=== PATIENT | female | born 1955 | race Caucasian/White ===

== ENCOUNTER 2017-03-29 05:36 | Outpatient (CLI) | payer BC ==
[~2017-03-29] VITALS: Ht 160 cm; Wt 86.4 kg
[2017-03-29 06:32] LABS: BASOPHILS 0.5 % (0-2); EOSINOPHILS 2.9 % (0-7); HEMATOCRIT 43.3 % (36.0-48.0); IMMATURE GRANULOCYTES 0.5 % (0-5); MCH 26.8 pg (26.0-34.0); MCHC 32.3 g/dL (31.0-37.0); MONOCYTES 9.5 % (2-11); NEUTROPHILS 64.6 % (40-80); PLATELET COUNT 317 10x3/uL (130-400); RBC 5.22 10x6/uL (4.00-5.40); RDW 13.5 % (11.5-14.5); WBC 10.2 10x3/uL (4.8-10.8)
[2017-03-29 07:05] LABS: CALC OSMOLALITY 284 mosm/kg (275-300); CALCIUM 8.7 mg/dL (8.5-10.1); CARBON DIOXIDE 26.9 mmol/L (21.0-32.0); CHLORIDE - SERUM 107 mmol/L (98-107); CREATININE - SERUM 0.8 mg/dL (0.6-1.3); GLUCOSE 129 mg/dL (74-106); POTASSIUM - SERUM 4.1 mmol/L (3.5-5.1); SODIUM 142 mmol/L (136-145); UREA NITROGEN 13 mg/dL (7-18); eGFR NON AFRICAN AMERICAN 77 mL/min (90-120)
[2017-03-29] MEDS ORDERED: ALDACTONE100 MG PO (07:05)
[2017-03-29] MEDS ORDERED: ARMOUR THYROID90 MG PO (07:05)
[2017-03-29] MEDS ORDERED: PROMETRIUM100 MG PO (07:05)
[2017-03-29] MEDS ORDERED: FARXIGA10 MG PO (07:06)
[2017-03-29] MEDS ORDERED: VICTOZA0.6 MG/0.1 SQ (07:06)
[2017-03-29] MEDS ORDERED: METFORMIN HCL500 M1 PO (07:06)
[2017-03-29] MEDS ORDERED: LIPITOR10 MG PO (07:06)
[2017-03-29 07:09] VITALS: BP 120/71; Ht 160 cm; Wt 86.4 kg
[2017-03-29 07:10] LABS: APTT 27.6 SECONDS (22.8-39.4); INR 1.1 (0.85-1.17); PROTIME 13.8 SECONDS (11.6-15.0)
--- NOTE | 2017-03-29 12:30 | NUR ---
0905--ALL VITAL SIGNS CHARTED ON POST PROCEDURE VITAL SIGN SHEET ON CHART. TING GAMBINO 1105--PT IV DC'D, PT UP TO DRESS AT THIS TIME. TING GAMBINO 1125--DISCHARGE INSTRUCTIONS GIVEN, PT VERBALIZES UNDERSTANDING. PT OFF UNIT VIA WC. TING GAMBINO
== END 2017-03-29 11:25 | disposition home or self-care (01) ==
LOC: D.OPS 05:36 → D.CT 08:00 → D.OPS 08:00
PROVIDERS: Radiology Diagnostic Radiology
DX: D72.829 Elevated white blood cell count, unspecified (principal); Z01.812 Encounter for preprocedural laboratory examination

== ENCOUNTER → 2017-05-29 16:35 | Outpatient (CLI) | payer BC ==
[2017-03-29 07:09] VITALS: BMI 33.7
[~2017-05-29 16:35] MED LIST: ALDACTONE100 MG PO; ARMOUR THYROID90 MG PO; FARXIGA10 MG PO; LIPITOR10 MG PO; METFORMIN HCL500 M1 PO; PROMETRIUM100 MG PO; VICTOZA0.6 MG/0.1 SQ
== END | disposition home or self-care (01) ==
LOC: D.MAMMO 04-11 13:45
DX: Z12.31 Encounter for screening mammogram for malignant neoplasm of breast (principal)

== ENCOUNTER 2018-08-24 09:00 | Outpatient (CLI) | payer BC ==
[2017-03-29 07:09] VITALS: BMI 33.7
== END 2018-08-24 10:00 | disposition home or self-care (01) ==
LOC: D.MAMMO 09:00
PROVIDERS: ATTEND Family Medicine
DX: Z12.31 Encounter for screening mammogram for malignant neoplasm of breast (principal)

== ENCOUNTER 2019-12-17 08:50 | Outpatient (CLI) | payer BC ==
[2017-03-29 07:09] VITALS: BMI 33.7
== END 2019-12-17 23:59 | disposition home or self-care (01) ==
LOC: D.MAMMO 08:50
PROVIDERS: ATTEND Family Medicine
DX: Z12.31 Encounter for screening mammogram for malignant neoplasm of breast (principal)